=== PATIENT | male | born 1990 | race Native Hawaiian/Other Pacific Islander ===

== ENCOUNTER 2018-06-03 00:02 | Emergency (ER) | payer OTHER ==
[2018-06-03 00:13] VITALS: BP 131/93; PULSE 89; TEMP 99.2
[2018-06-03] MEDS ORDERED: Tetanus/Diphtheria Toxoids 0.5 ml Syringe IM ONE ×2 (00:51→00:59)
--- NOTE | 2018-06-03 01:03 | C.PDOC ---
History Of Present Illness 27 year old male presents to the ED for evaluation of small abrasion to left index finger. Patient reports he was cutting a [place] when he accidentally cut the tip of his left index finger. Patient denies rash, weakness, numbness. Time Seen by Provider: 06/03/18 00:17 Chief Complaint (Nursing): Abnormal Skin Integrity History Per: Patient History/Exam Limitations: no limitations Onset/Duration Of Symptoms: Hrs Current Symptoms Are (Timing): Still Present Location Of Injury: Left: Hand Quality Of Symptoms: Painful Recent travel outside of the [place]: No Additional History Per: Patient Past Medical History Reviewed: Historical Data, Nursing Documentation, Vital Signs Vital Signs: Last Vital Signs Temp 99.2 F 06/03/18 00:11 Pulse 89 06/03/18 00:11 Resp BP 131/93 H 06/03/18 00:11 Pulse Ox - Medical History PMH: No Chronic Diseases Surgical History: No Surg Hx Family History: States: Unknown Family Hx - Social History Hx Alcohol Use: Yes Hx Substance Use: No - Immunization History Hx Tetanus Toxoid Vaccination: No Hx Influenza Vaccination: No Hx Pneumococcal Vaccination: No Review Of Systems Constitutional: Negative for: Fever, Chills Gastrointestinal: Negative for: Nausea, Vomiting Musculoskeletal: Positive for: Hand Pain Skin: Positive for: Other (abrasion) Neurological: Negative for: Weakness, Numbness Psych: Negative for: Psychosis Physical Exam - Physical Exam Appears: Non-toxic, No Acute Distress Skin: Normal Color, Warm, Dry Head: Atraumatic, Normacephalic Eye(s): bilateral: Normal Inspection Neck: Normal ROM, Supple Extremity: Normal ROM, No Tenderness, Capillary Refill (< 2 seconds), No Swelling, Other (tip of left second finger, small hematoma, dry blood, nail partial abrasion. No active bleeding) Pulses: Left Radial: Normal, Right Radial: Normal Neurological/Psych: Oriented x3, Normal Speech, Normal Cognition, Normal Motor, Normal Sensation Gait: Steady ED Course And Treatment Pulse Ox Interpretation: Normal Progress Note: Plan: - tetanus booster. Patient was given tetanus booter. Area was cleaned with sterile saline, bacitracin dressing was applied and covered. There was no indication for sutures. Patient was advised to follow up with PMD, proper wound care instructed. Disposition - Disposition Referrals: [facility] at [facility] [Outside] Disposition: HOME/ ROUTINE Disposition Time: 01:11 Condition: GOOD Additional Instructions: Keep finger clean and dry Follow up with PMD in 1-2 days for wound check Apply bacitracin or neosporin oint Return to ER if worse Instructions: Common Finger Injuries (DC) Forms: [facility] (Mauritanian) - Clinical Impression Clinical Impression: Abrasion of finger - PA / AVAYA ENGINEER / Resident Statement MD/DO has reviewed & agrees with the documentation as recorded. - Scribe Statement The provider has reviewed the documentation as recorded by the Scribe Kvng Pablo All medical record entries made by the Scribe were at my direction and personally dictated by me. I have reviewed the chart and agree that the record accurately reflects my personal performance of the history, physical exam, medical decision making, and the department course for this patient. I have also personally directed, reviewed, and agree with the discharge instructions and disposition.
[2018-06-03] MEDS ORDERED: Bacitracin 500 Units/gm Oint Foilpak UD ONE (01:04)
== END 2018-06-03 00:58 | disposition home or self-care (01) ==
LOC: C.ER 00:02
DX: S60.411A Abrasion of left index finger, initial encounter (principal); W45.8XXA Other foreign body or object entering through skin, initial encounter; Z23 Encounter for immunization